=== PATIENT | male | born 1980 | race Caucasian/White ===

== ENCOUNTER 2020-05-25 08:09 | Emergency (ER) | payer BC ==
[~2020-05-25] VITALS: Ht 172.7 cm; Wt 99.6 kg
--- NOTE | 2020-05-25 08:35 | NUR ---
first contact with pt. pt c/o l flank/back pain with nausea started today. pt stated "i can't fully urinate." pt's aox4. resps even and unlabored. bp/spo2 monitors in place. call light within reach. pa at bedside for assessment at this time.
--- NOTE | 2020-05-25 08:37 | NUR ---
pt amb to br with steady gait. urine cup given.
[2020-05-25] MEDS ORDERED: HYDROmorphone 1 MG/ML, 1ML INJ ONE ×2 (08:40→10:27)
[2020-05-25] MEDS ORDERED: ONDANSETRON 2MG/ML, 2ML ONE (08:40)
[2020-05-25] MEDS: HYDROmorphone 1 MG/ML, 1ML INJ IVPush PRN ×2 (08:46→10:30)
--- NOTE | 2020-05-25 08:59 | NUR ---
piv est by emt. pt medicated per emar for pain and nausea. pt tolerated well.
[2020-05-25] MEDS ORDERED: ONDANSETRON 2MG/ML, 2ML IVPush ONE (09:00)
[2020-05-25] MEDS ORDERED: SODIUM CHLORIDE FLUSH 10ML SYR IVF ONE (09:00)
--- NOTE | 2020-05-25 09:00 | NUR ---
urine collected and ua sent. bladderscan showed 27ml.
[2020-05-25 09:11] LABS: MICROSCOPIC AUTO
[2020-05-25 09:26] LABS: BASOPHILS % (AUTO) 1 % (0-1); EOSINOPHILS % (AUTO) 5 % (1-7); LYMPHOCYTES % (AUTO) 20 % (22-44); MEAN CORPUSCULAR HEMOGLOBIN 31.7 pg (27.5-34.5); MEAN CORPUSCULAR HGB CONC 33.9 g/dL (33.2-36.2); MEAN PLATELET VOLUME 8.6 fL (7.4-10.4); MONOCYTES % (AUTO) 5 % (2-9); NEUTROPHILS % (AUTO) 69 % (42-75); PLATELET COUNT 223 x10^3/uL (130-400); RED BLOOD COUNT 5.14 x10^6/uL (4.38-5.82)
[2020-05-25 09:29] LABS: MD NO
[2020-05-25 09:39] LABS: ALANINE AMINOTRANSFERASE 20 U/L (12-78); ALBUMIN 4.2 g/dL (3.4-5.0); ANION GAP 6 mmol/L (5-15); CALCIUM 8.8 mg/dL (8.5-10.1); CHLORIDE 110 mmol/L (98-107); CREATININE 1.17 mg/dL (0.7-1.3)
[2020-05-25 09:41] LABS: ALKALINE PHOSPHATASE 105 U/L (45-117); BILIRUBIN,TOTAL 0.4 mg/dL (0.2-1.0); TOTAL PROTEIN 7.4 g/dL (6.4-8.2)
--- NOTE | 2020-05-25 09:41 | NUR ---
pt sleeping in gurney. resps even and unlabored. pt's at bedside. vss.
[2020-05-25] MEDS ORDERED: METOCLOPRAMIDE 5 MG/ML, 2ML ONE (10:27)
[2020-05-25] MEDS ORDERED: METOCLOPRAMIDE 5 MG/ML, 2ML IVPush ONE (10:30)
--- NOTE | 2020-05-25 10:33 | NUR ---
PT MEDICATED PER EMAR FOR NAUSEA AND PAIN AT THIS TIME. PT TOLERATED WELL.
--- NOTE | 2020-05-25 11:18 | NUR ---
pt stated"i feel better but still hurting. pain level is 7/10 now." pt resting in [facility]. pt's aox4. resps even and unlabored. vss.nadn.
[2020-05-25] MEDS ORDERED: KETOROLAC 30 MG/1 ML IVPush ONE (11:30)
[2020-05-25] MEDS ORDERED: KETOROLAC 30 MG/1 ML ONE (11:36)
--- NOTE | 2020-05-25 11:43 | NUR ---
PT MEDICATED PER EMAR. PT TOLERATED WELL.
--- NOTE | 2020-05-25 11:50 | NUR ---
pt's number [phone]
--- NOTE | 2020-05-25 12:12 | NUR ---
TASK RN, COVERING MEAL BREAK. CALL TO TO INFORM OF DISCHARGE. ON WAY FROM [facility] TO P/U PT.
[2020-05-25 12:55] VITALS: BP 127/75
--- NOTE | 2020-05-25 12:56 | NUR ---
Patient given discharge instructions and they have confirmed that they understand the instructions.
== END 2020-05-25 12:57 | disposition home or self-care (01) ==
LOC: ED 09:29
DX: N20.2 Calculus of kidney with calculus of ureter (principal); K40.90 Unilateral inguinal hernia, without obstruction or gangrene, not specified as recurrent
CPT/HCPCS: 36415; 74176; 80053; 81001; 85025; 96374; 96375; 96376; 99285; J1170; J1885; J2405; J2765